=== PATIENT | female | born 1985 | race Asian ===

== ENCOUNTER 2020-10-11 11:20 | Outpatient (REF) | payer OTHER, SELFPAY ==
[2020-10-11 12:57] LABS: Alanine Aminotransferase 17 U/L (0-31); Albumin Level 4.3 g/dL (3.5-5.0); Alkaline Phosphatase 59 U/L (39-117); Anion Gap 10 (12-20); Aspartate Amino Transferase 26 U/L (5-31); Bilirubin Total 0.7 mg/dL (0.0-1.0); Blood Urea Nitrogen 8 mg/dL (9-16); Calcium 9.6 mg/dL (8.4-10.2); Carbon Dioxide 29 mmol/L (22-29); Chloride 103 mmol/L (96-108); Cholesterol 147 mg/dL; Estimated Glomerular Filt Rate > 60; Glucose Random 96 mg/dL (60-115); HDL Cholesterol 37 mg/dL; LDL Cholesterol Calculated 88 mg/dl; Potassium 4.4 mmol/L (3.3-5.1); Sodium 138 mmol/L (135-145); Total Protein 7.3 g/dL (6.5-8.0); Triglycerides 114 mg/dL
[2020-10-11 13:17] LABS: ~HepC Num1 0.15 S/CO (0.00-0.79); ~Hepatitis C Antibody Nonreactive (Nonreactive)
== END 2020-10-11 11:21 | disposition home or self-care (01) ==
LOC: HO.LAB 11:20
PROVIDERS: PCP Family Medicine; Visit Provider Family Medicine
DX: Z00.00 Encounter for general adult medical examination without abnormal findings (principal); Z11.59 Encounter for screening for other viral diseases
CPT/HCPCS: 36415; 80053; 80061; 86803

== ENCOUNTER 2021-05-02 12:07 | Outpatient (REF) | payer OTHER, SELFPAY ==
--- NOTE | ~2021-05-02 | US_ITS ---
EXAMINATION: US RETROPERITONEAL LIMITED (RENAL ONLY) CLINICAL INFORMATION: Malignant neoplasm of left kidney. COMPARISON: Renal ultrasound 12/16/2018. TECHNIQUE: Real-time imaging of the kidneys. FINDINGS: RIGHT KIDNEY: 11.1 x 4.8 x 6.6 cm (SAG x AP x TRV). The kidney is normal in size, contour, and echogenicity. Renal cortical thickness is normal. No calculi or focal parenchymal lesions. No hydronephrosis. There is an extrarenal pelvis. LEFT KIDNEY: Surgically absent. US/US renal RT IMPRESSION: Extrarenal pelvis of the right kidney, otherwise unremarkable.
--- NOTE | ~2021-05-02 | XR_ITS ---
EXAMINATION: XR CHEST CLINICAL INFORMATION: Renal malignancy COMPARISON: Ultrasound of May 02, 2021 and December 16, 2018 TECHNIQUE: 2 views of the chest were obtained. FINDINGS: No significant abnormality is noted involving the heart, lungs, mediastinum, bony thorax or soft tissues. XR/XR chest 2V IMPRESSION: No acute disease.
== END 2021-05-02 12:08 | disposition home or self-care (01) ==
LOC: HO.US 12:07
PROVIDERS: PCP Family Medicine; Visit Provider Urology
DX: C64.2 Malignant neoplasm of left kidney, except renal pelvis (principal)
CPT/HCPCS: 71046; 76775

== ENCOUNTER 2021-06-06 11:46 | Outpatient (REF) | payer OTHER, SELFPAY ==
[2021-06-06 12:57] LABS: Blood Urea Nitrogen 8 mg/dL (9-16); Estimated Glomerular Filt Rate > 60
== END 2021-06-06 11:47 | disposition home or self-care (01) ==
LOC: HO.LAB 11:46
PROVIDERS: Visit Provider Urology
DX: C64.2 Malignant neoplasm of left kidney, except renal pelvis (principal)
CPT/HCPCS: 36415; 82565; 84520

== ENCOUNTER 2022-07-10 11:37 | Outpatient (REF) | payer OTHER, SELFPAY ==
--- NOTE | ~2022-07-10 | XR_ITS ---
EXAMINATION: XR CHEST CLINICAL INFORMATION: Malignant neoplasm of left kidney. COMPARISON: 05/02/2021 chest radiographs. TECHNIQUE: 2 views of the chest were obtained. FINDINGS: The lungs are clear. There are no pleural effusions. The heart and mediastinal structures are unremarkable. Mild thoracolumbar dextro scoliosis is noted without suspicious abnormality. XR/XR chest 2V IMPRESSION: Stable chest. No acute cardiopulmonary process.
--- NOTE | ~2022-07-10 | US_ITS ---
EXAMINATION: US RETROPERITONEAL LIMITED (RENAL ONLY) CLINICAL INFORMATION: Malignant neoplasm of left kidney. COMPARISON: Renal ultrasound 05/02/2021 and 12/16/2018. TECHNIQUE: Real-time imaging of the kidneys. FINDINGS: RIGHT KIDNEY: 12.1 x 5.3 x 5.4 cm (SAG x AP x TRV). The kidney is normal in size, contour, and echogenicity. Renal cortical thickness is normal. No renal calculi or focal parenchymal lesions. New trace right hydronephrosis. LEFT KIDNEY: Surgically absent. US/US renal RT IMPRESSION: 1. New trace right hydronephrosis. 2. Status post left nephrectomy.
[2022-07-10 12:53] LABS: Basophils Percent Auto 0.8 % (0-2); Eosinophils Absolute Auto 0.3 X10*3/uL (0.0-0.4); Hematocrit 25.1 % (37.0-47.0); Imm Gran Abs Auto 0.02 X10*3/uL (0.00-0.03); Imm Gran Pct Auto 0.4 % (0.0-0.4); Lymphocytes Absolute Auto 1.3 X10*3/uL (1.2-4.9); Lymphocytes Percent Auto 26.6 % (20-40); MANUAL DIFF FLAG SCAN; Mean Corpuscular HGB Conc 26.3 g/dl (31.0-35.0); Monocytes Absolute Auto 0.3 X10*3/uL (0.1-1.2); Neutrophils Percent Auto 60.2 % (45-73); PLT CLUMP 1; Red Blood Count 4.41 X10*6/uL (4.20-5.50); Red Cell Distribution Width 22.1 % (11.0-16.0); SCAN SMEAR FLAG 1
[2022-07-10 13:02] LABS: Anion Gap 13 (12-20); Blood Urea Nitrogen 7 mg/dL (9-16); Calcium 9.8 mg/dL (8.4-10.2); Carbon Dioxide 26 mmol/L (22-29); Chloride 105 mmol/L (96-108); Estimated Glomerular Filt Rate > 60; Glucose Random 93 mg/dL (60-115); Potassium 4.6 mmol/L (3.3-5.1); Sodium 139 mmol/L (135-145)
[2022-07-10 13:10] LABS: Mean Corpuscular Volume 56.9 fL (80.0-98.0)
[2022-07-10 13:11] LABS: Platelet Count 160 X10*3/uL (160-400)
[2022-07-10 13:24] LABS: Hemoglobin 6.6 g/dl (12.0-16.0)
[2022-07-10 13:25] LABS: SLIDE REVIEW VERIFIED
== END 2022-07-10 11:38 | disposition home or self-care (01) ==
LOC: HO.US 11:37
PROVIDERS: Absent Provider Urology; PCP Family Medicine; Visit Provider Nurse Practitioner Family
DX: C64.2 Malignant neoplasm of left kidney, except renal pelvis (principal)
CPT/HCPCS: 36415; 71046; 76775; 80048; 85025

== ENCOUNTER 2022-07-11 13:37 | Observation (INO) | payer OTHER, SELFPAY ==
[2022-07-11] VITALS (7 sets, daily range): BP systolic 108–129; BP diastolic 72–83; PULSE 75–102; RESP 16–20; TEMP 36.5–36.9; O2SAT 100; BMI 22.5
--- NOTE | ~2022-07-11 | US_ITS ---
EXAMINATION: US PELVIS CLINICAL INFORMATION: Menorrhagia. COMPARISON: Pelvic ultrasound dated 11/20/2016. TECHNIQUE: Ultrasound of the pelvis is performed using both transabdominal and transvaginal transducers along with Doppler. Transvaginal imaging is performed due to inadequate visualization transabdominally. FINDINGS: Uterus: Anteverted/anteflexed measuring 7.8 x 5.1 x 7.3 cm. Subserosal fibroid in the right fundus measuring approximately 3.1 x 2.6 x 2.4 cm. A smaller intramural fibroid in the body in the left measures 1.3 x 1.0 x 1.1 cm. The endometrial stripe measures up to 1.3 cm with mild heterogeneity. A submucosal echogenic focus posteriorly at the level the fundus measures 0.3 x 0.2 cm. The cervix is closed measuring approximately 3 cm. Right ovary: 8.0 x 7.7 x 7.0 cm. Homogeneous hypoechoic cyst measuring approximately 7.0 x 6.9 x 6.1 cm. Color Doppler showed no associated vascular flow. Left ovary: 5.6 x 3.1 x 5.3 cm. Hypoechoic cysts measuring 4.0 x 3.0 x 2.9 cm. Anechoic cyst measures 2.3 x 1.8 x 1.6 cm. Mild adjacent anechoic fluid. Color Doppler showed no abnormal vascular flow. US/US pelvic and transvaginal IMPRESSION: 1. Fibroid uterus. 2. Mildly heterogeneous endometrium with tiny submucosal calcification. The previously seen polyp was not visualized. 3. Hypoechoic and anechoic ovarian cysts, right greater left. These likely represent hemorrhagic cyst however endometriomas cannot be excluded. If menorrhagia persists or worsens, nonemergent contrast-enhanced pelvic MRI should be considered to better characterize these multiple findings.
[2022-07-11 13:51] LABS: Basophils Percent Auto 0.3 % (0-2); Eosinophils Absolute Auto 0.2 X10*3/uL (0.0-0.4); Eosinophils Percent Auto 2.5 % (0-4); Imm Gran Abs Auto 0.02 X10*3/uL (0.00-0.03); Imm Gran Pct Auto 0.3 % (0.0-0.4); Lymphocytes Absolute Auto 0.9 X10*3/uL (1.2-4.9); Lymphocytes Percent Auto 14.6 % (20-40); MANUAL DIFF FLAG SCAN; Mean Corpuscular HGB Conc 26.2 g/dl (31.0-35.0); Mean Corpuscular Hemoglobin 15.1 pg (27.0-33.0); Monocytes Absolute Auto 0.4 X10*3/uL (0.1-1.2); Neutrophils Absolute Auto 4.6 x10*3/uL (2.0-8.3); Neutrophils Percent Auto 76.3 % (45-73); PLT CLUMP 1; Red Blood Count 4.49 X10*6/uL (4.20-5.50); Red Cell Distribution Width 22.1 % (11.0-16.0); SCAN SMEAR FLAG 1
[2022-07-11 13:59] LABS: Hemoglobin 6.8 g/dl (12.0-16.0); Mean Corpuscular Volume 57.9 fL (80.0-98.0)
[2022-07-11 14:10] LABS: Platelet Count 163 X10*3/uL (160-400); SLIDE REVIEW VERIFIED
[2022-07-11 14:12] LABS: Alanine Aminotransferase 12 U/L (0-31); Albumin Level 4.3 g/dL (3.5-5.0); Alkaline Phosphatase 56 U/L (39-117); Anion Gap 15 (12-20); Aspartate Amino Transferase 25 U/L (5-31); Bilirubin Total 0.4 mg/dL (0.0-1.0); Blood Urea Nitrogen 10 mg/dL (9-16); Calcium 9.4 mg/dL (8.4-10.2); Carbon Dioxide 24 mmol/L (22-29); Chloride 105 mmol/L (96-108); Creatinine Clr Calc Pharmacy 97.7; Estimated Glomerular Filt Rate > 60; Glucose Random 99 mg/dL (60-115); Potassium 4.6 mmol/L (3.3-5.1); Sodium 139 mmol/L (135-145); Total Protein 7.2 g/dL (6.5-8.0)
--- NOTE | 2022-07-11 16:33 | ED.GENADULT ---
HPI - General Adult General Chief complaint: General Medical <MARIANELA Mcgrath - Last Filed: 07/11/22 22:05> Stated complaint: Sent by PCP, ? abnormal labs <MARIANELA Mcgrath - Last Filed: 07/11/22 22:05> Time Seen by Provider: 07/11/22 19:34 <MARIANELA Mcgrath - Last Filed: 07/11/22 22:05> Source: patient <MARIANELA Mcgrath - Last Filed: 07/11/22 22:05> Mode of arrival: ambulatory <MARIANELA Mcgrath - Last Filed: 07/11/22 22:05> Limitations: no limitations <MARIANELA Mcgrath - Last Filed: 07/11/22 22:05> History of Present Illness HPI narrative: Patient is a 37 year old assigned female at with history of renal cell carcinoma s/p left kidney removal presenting to the emergency department today after being told she had abnormal labs at her PCP. Patient states that yesterday, she had a an appointment with her PCP for the first time in a long time for a check up and today she was told that her hgb is low. Patient states that she only gets dizzy when she stands up too quick but otherwise feels fine. Patient states that her last menstrual cycle was last week. Patient denies any current lightheadedness, abdominal pain, nausea, vomiting, fever, chills, blurry vision, double vision, loss of vision, chest pain, difficulty breathing, shortness of breath, back pain, night sweats, pain with urination, increased urinary frequency, increased urinary urgency, blood in her stool, syncope or a near syncopal episode, recent trauma or falls, bowel incontinence, bladder incontinence, bowel retention, bladder retention, or any other complaints at this time. Dr Gomez's Note: 37-year-old female with significant past medical history of renal cell carcinoma for which she has had her left kidney removed and is currently followed annually by Dr. Paige. Patient states that she has been having dizziness, dyspnea on exertion as well as racing heart for the past 6 months and has been attempting to follow-up with primary care provider without success. Patient has known menorrhagia for which she has never had an ultrasound or further evaluation by Gynecology for. she otherwise denies any hematemesis , melena, hematochez. Her last menstrual period was last week. <MARIANELA Mcgrath - Last Filed: 07/11/22 22:05> Patient is a 37 year old assigned female at with no reported medical history presenting to the emergency department today after being told she had abnormal labs at her PCP. Patient states that yesterday, she had a an appointment with her PCP for the first time in a long time for a check up and today she was told that her hgb is low. Patient states that she only gets dizzy when she stands up too quick but otherwise feels fine. Patient states that she is currently on her period and her periods are usually as heavy as this one is presently. Patient denies any lightheadedness, abdominal pain, nausea, vomiting, fever, chills, blurry vision, double vision, loss of vision, chest pain, difficulty breathing, shortness of breath, back pain, night sweats, pain with urination, increased urinary frequency, increased urinary urgency, blood in her stool, syncope or a near syncopal episode, recent trauma or falls, bowel incontinence, bladder incontinence, bowel retention, bladder retention, or any other complaints at this time. Dr Gomez's Note: 37-year-old female with significant past medical history of renal cell carcinoma for which she has had her left kidney removed and is currently followed annually by Dr. Paige. Patient states that she has been having dizziness, dyspnea on exertion as well as racing heart for the past 6 months and has been attempting to follow-up with primary care provider without success. Patient has known menorrhagia for which she has never had an ultrasound or further evaluation by Gynecology for. she otherwise denies any hematemesis , melena, hematochez. Her last menstrual period was last week. <Chelsey Gomez MD - Last Filed: 07/11/22 21:23> Onset (ago): day(s) <MARIANELA Mcgrath - Last Filed: 07/11/22 22:05> Severity: mild <MARIANELA Mcgrath - Last Filed: 07/11/22 22:05> Severity scale (1-10): 5 <MARIANELA Mcgrath - Last Filed: 07/11/22 22:05> Relieving factors: none <MARIANELA Mcgrath - Last Filed: 07/11/22 22:05> Exacerbating factors: none <MARIANELA Mcgrath - Last Filed: 07/11/22 22:05> Associated symptoms: denies other symptoms <MARIANELA Mcgrath - Last Filed: 07/11/22 22:05> Treatments prior to arrival: none <MARIANELA Mcgrath - Last Filed: 07/11/22 22:05> Related Data Home medications: Home Medications Medication Instructions Recorded Confirmed acetaminophen 325 mg tablet 650 mg PO Q6H PRN Pain 07/11/22 07/11/22 omeprazole 20 mg capsule,delayed 20 mg PO DAILY PRN Heartburn 07/11/22 07/11/22 release <MARIANELA Mcgrath - Last Filed: 07/11/22 22:05> Allergies/adverse reactions: Allergies Allergy/AdvReac Type Severity Reaction Status Date / Time No Known Allergies Allergy Unverified 05/17/20 18:33 [No Known Allergies*] <MARIANELA Mcgrath - Last Filed: 07/11/22 22:05> Review of Systems Review of Systems: Pertinent positives and negatives as stated in HPI 10 point review of systems is otherwise negative. <Chelsey Gomez MD - Last Filed: 07/11/22 21:23> Constitutional: Constitutional: Reports no additional constitutional complaints, Denies chills, Denies fever(s) and Denies night sweats <MARIANELA Mcgrath - Last Filed: 07/11/22 22:05> Eyes: Eyes: Reports no additional eye complaints, Denies blurry vision, Denies change in vision, Denies diplopia, Denies eye discharge, Denies loss of vision and Denies eye pain <MARIANELA Mcgrath - Last Filed: 07/11/22 22:05> ENT: Reports dizziness (with rapid standing) <MARIANELA Mcgrath - Last Filed: 07/11/22 22:05> Cardiovascular: Cardiovascular: Reports no additional cardiovascular complaints, Denies chest pain, Denies lightheadedness, Denies Loss of Consciousness and Denies dyspnea <MARIANELA Mcgrath - Last Filed: 07/11/22 22:05> Respiratory: Respiratory: Reports no additional respiratory complaints and Denies dyspnea <MARIANELA Mcgrath - Last Filed: 07/11/22 22:05> Gastrointestinal: Gastrointestinal: Reports no additional gastrointestinal complaints, Denies abdominal pain, Denies melena, Denies hematochezia, Denies change in bowel habits and Denies change in stool character <MARIANELA Mcgrath - Last Filed: 07/11/22 22:05> Genitourinary: Genitourinary: Denies hematuria, Denies urinary frequency, Denies dysuria, Denies urinary incontinence, Denies urinary hesitancy and Denies urinary urgency <MARIANELA Mcgrath - Last Filed: 07/11/22 22:05> Musculoskeletal: Musculoskeletal: Reports no additional musculoskeletal complaints, Denies numbness and Denies tingling <MARIANELA Mcgrath - Last Filed: 07/11/22 22:05> Neurologic: Reports dizziness (with rapid standing), Denies loss of vision, Denies numbness and Denies tingling <MARIANELA Mcgrath - Last Filed: 07/11/22 22:05> Psychiatric: Psychiatric: Reports no additional psychiatric complaints <MARIANELA Mcgrath - Last Filed: 07/11/22 22:05> Endocrine: Endocrine: Reports no additional endocrine complaints <MARIANELA Mcgrath - Last Filed: 07/11/22 22:05> Hematologic/Lymphatic: Hematologic/Lymphatic: Reports no additional hematologic/lymphatic complaints <MARIANELA Mcgrath - Last Filed: 07/11/22 22:05> Allergic/Immunologic: Allergic/Immunologic: Reports no additional allergic/immunologic complaints <MARIANELA Mcgrath - Last Filed: 07/11/22 22:05> PMFSH Past Medical History Attestation statement: The following information was validated with the patient. <MARIANELA Mcgrath - Last Filed: 07/11/22 22:05> Source: old records reviewed <MARIANELA Mcgrath - Last Filed: 07/11/22 22:05> nursing notes reviewed <Chelsey Gomez MD - Last Filed: 07/11/22 21:23> Medical History: Medical History Menorrhagia <MARIANELA Mcgrath - Last Filed: 07/11/22 22:05> Social History Social History: Social History Advance Directives: No Advance Directives Information Provided: No <MARIANELA Mcgrath - Last Filed: 07/11/22 22:05> Physical Exam ED Vital Signs: Vital Signs - 24 hr 07/11/22 13:38 07/11/22 20:39 07/11/22 21:39 Temperature 97.8 F 97.7 F Pulse Rate 96 82 85 Respiratory Rate 18 16 17 Blood Pressure 117/73 126/81 115/74 Pulse Oximetry 100 100 100 Oxygen Delivery Method Room Air Room Air Room Air 07/11/22 21:58 Temperature 97.7 F Pulse Rate 98 Respiratory Rate 20 Blood Pressure 129/83 Pulse Oximetry Oxygen Delivery Method BMI result Body Mass Index 22.5 <MARIANELA Mcgrath - Last Filed: 07/11/22 22:05> Vital Signs - 24 hr 07/11/22 13:38 07/11/22 20:39 07/11/22 21:39 Temperature 97.8 F 97.7 F Pulse Rate 96 82 85 Respiratory Rate 18 16 17 Blood Pressure 117/73 126/81 115/74 Pulse Oximetry 100 100 100 Oxygen Delivery Method Room Air Room Air Room Air 07/11/22 21:58 Temperature 97.7 F Pulse Rate 98 Respiratory Rate 20 Blood Pressure 129/83 Pulse Oximetry Oxygen Delivery Method BMI result Body Mass Index 22.5 VITAL SIGNS: Reviewed. GENERAL: Well developed, well nourished, in no acute distress. HEAD: Normocephalic/atraumatic EYES: PERRLA, EOMI EARS: Ext canals without abnormality OROPHARYNX: no oral lesions noted, posterior pharynx clear LUNGS: Normal breath sounds. No adventitious sounds or accessory muscle use. SpO2<100> CARDIOVASCULAR: Regular rate and rhythm without noted murmurs ABDOMEN: Soft, non-tender, non-distended with bowel sounds. MUSCULOSKELETAL: No tenderness, deformities, or effusions noted on gross inspection. EXTREMITIES: No cyanosis, clubbing or edema. SKIN: Inspection of the skin reveals no rashes, dry, poor turgor NEUROLOGIC: Alert and oriented x 4. Strength and sensation to light touch were grossly intact x 4. <Chelsey Gomez MD - Last Filed: 07/11/22 21:23> Const General: cooperative, no acute distress, alert and awake <MARIANELA Mcgrath - Last Filed: 07/11/22 22:05> Nutritional Appearance: well nourished <MARIANELA Mcgrath - Last Filed: 07/11/22 22:05> Orientation/consciousness: patient oriented x3 <MARIANELA Mcgrath - Last Filed: 07/11/22 22:05> Limitations: no limitations <MARIANELA Mcgrath - Last Filed: 07/11/22 22:05> HENMT Head: Yes normal to inspection and Yes atraumatic <Melissa Prieto RI - Last Filed: 07/11/22 22:05> Ears: hearing grossly normal bilaterally and external ears normal <MARIANELA Mcgrath - Last Filed: 07/11/22 22:05> General nose exam: Normal external nose present, no nasal discharge noted and no epistaxis <MARIANELA Mcgrath - Last Filed: 07/11/22 22:05> Face and sinus: Yes normal facial exam, No abrasion and No laceration <Melissa Prieto RI - Last Filed: 07/11/22 22:05> Mouth: Normal oral and palatal mucosa present, no drooling and no muffled voice <Melissa Prieto RI - Last Filed: 07/11/22 22:05> Eyes General: appearance normal, both eyes and all related structures <MARIANELA Mcgrath - Last Filed: 07/11/22 22:05> Periorbital: periorbital findings normal <MARIANELA Mcgrath - Last Filed: 07/11/22 22:05> Eyelids: Yes eyelids normal <MARIANELA Mcgrath - Last Filed: 07/11/22 22:05> Conjunctivae: conjunctivae normal <MAIRANELA Mcgrath - Last Filed: 07/11/22 22:05> Pupils: Equal, round and reactive pupils present <MARIANELA Mcgrath - Last Filed: 07/11/22 22:05> EOM: EOMs intact bilaterally <MARIANELA Mcgrath - Last Filed: 07/11/22 22:05> Neck Neck: Yes normal visual inspection, Yes full ROM and Yes no lymphadenopathy <MARIANELA Mcgrath - Last Filed: 07/11/22 22:05> Chest Chest palpation & inspection: normal inspection of the chest <Melissa PrietoMARIANELA - Last Filed: 07/11/22 22:05> Resp Effort & Inspection: normal respiratory effort and able to speak in complete sentences <Mleissa PrietoMARIANELA - Last Filed: 07/11/22 22:05> Auscultation: clear to auscultation bilaterally <Melissa PrietoMARIANELA - Last Filed: 07/11/22 22:05> Cardio Rate: regular rate <Melissa PrietoMARIANELA - Last Filed: 07/11/22 22:05> Rhythm: regular rhythm <Melissa rPietoMARIANELA - Last Filed: 07/11/22 22:05> GI Inspection: Yes normal to inspection <Melissa PrietoMARIANELA - Last Filed: 07/11/22 22:05> Neuro General: patient oriented x3 and moves all extremities <Melissa PrietoMARIANELA - Last Filed: 07/11/22 22:05> Cranial nerves: Yes Equal, round and reactive pupils present <Melissa PrietoMARIANELA - Last Filed: 07/11/22 22:05> Cognition (Neuro): normal cognition <Melissa PrietoMARIANELA - Last Filed: 07/11/22 22:05> Motor exam (neuro): 5/5 motor strength present throughout <Melissa PrietoMARIANELA - Last Filed: 07/11/22 22:05> Sensory Exam: Normal double simultaneous stimulation for sensation <Melissa PrietoMARIANELA - Last Filed: 07/11/22 22:05> Coordination: [id number] test normal <Melissa MoraMARIANELA michael - Last Filed: 07/11/22 22:05> Extrem General: Yes normal to inspection, Yes full ROM and Yes capillary refill normal <Melissa MoraMARIANELA michael - Last Filed: 07/11/22 22:05> Psych Appearance: grossly normal <Melissaleslye MoraMARIANELA michael - Last Filed: 07/11/22 22:05> Mental Status: mental status grossly normal <Melissa MoraMARIANELA michael - Last Filed: 07/11/22 22:05> Affect: normal affect <Melissa MoraMARIANELA michael - Last Filed: 07/11/22 22:05> Attitude: cooperative <Melissaleslye MoraMARIANELA michael - Last Filed: 07/11/22 22:05> Thought process: Normal thought process present <MARIANELA Mcgrath - Last Filed: 07/11/22 22:05> Thought content: Normal thought content present <MARIANELA Mcgrath - Last Filed: 07/11/22 22:05> Insight: Good insight present (Psych) <MARIANELA Mcgrath - Last Filed: 07/11/22 22:05> Course Course Course Narrative: RME completed at 1615 by Melissa Prieto PA-C. Patient's hgb is 6.8 - I have alerted the charge nurse that the patient needs a room for blood transfusion. Type and screen ordered, beta hcg added on. Patient sent back to the waiting room pending room availability for blood transfusion and additional evaluation. <MARIANELA Mcgrath - Last Filed: 07/11/22 22:05> RME completed at 1615 by Melissa Prieto PA-C. Patient's hgb is 6.8 - I have alerted the charge nurse that the patient needs a room for blood transfusion. Type and screen ordered, beta hcg added on. Patient sent back to the waiting room pending room availability for blood transfusion and additional evaluation. 37-year-old female with history and clinical presentation consistent with chronic and progressive menorrhagia contributing to patient's noted acute blood loss anemia without other evidence blood loss. Patient is noted to be symptomatic as well as significantly anemic and given her underlying medical history will be admitted for further follow-up. I discussed the case with inpatient hospitalist who has accepted admission. <Chelsey Gomez MD - Last Filed: 07/11/22 21:23> Medical Decision Making Medical Records Medical records reviewed: Yes I reviewed the patient's medical records. <MARIANELA Mcgrath - Last Filed: 07/11/22 22:05> Lab Data Lab results reviewed: Yes I reviewed the patient's lab results. <MARIANELA Mcgrath - Last Filed: 07/11/22 22:05> Result diagrams: : 07/11/22 13:45 07/11/22 13:45 <MARIANELA Mcgrath - Last Filed: 07/11/22 22:05> Labs: Lab Results 07/11/22 07/11/22 07/11/22 Range/Units 13:45 13:45 17:22 WBC 6.0 (4.8-10.8) X10*3/uL RBC 4.49 (4.20-5.50) X10*6/uL Hgb 6.8 L* (12.0-16.0) g/dl Hct 26.0 L (37.0-47.0) % MCV 57.9 L (80.0-98.0) fL MCH 15.1 L (27.0-33.0) pg MCHC 26.2 L (31.0-35.0) g/dl RDW 22.1 H (11.0-16.0) % Plt Count 163 (160-400) X10*3/uL MPV Not Reportable Immature Gran % (Auto) 0.3 (0.0-0.4) % Neut % (Auto) 76.3 H (45-73) % Lymph % (Auto) 14.6 L (20-40) % Dane % (Auto) 6.0 (2-11) % Eos % (Auto) 2.5 (0-4) % Baso % (Auto) 0.3 (0-2) % Lymph # (Auto) 0.9 L (1.2-4.9) X10*3/uL Dane # (Auto) 0.4 (0.1-1.2) X10*3/uL Eos # (Auto) 0.2 (0.0-0.4) X10*3/uL Baso # (Auto) 0.0 (0.0-0.2) X10*3/uL Abs Immat Gran (auto) 0.02 (0.00-0.03) X10*3/uL Absolute Neuts (auto) 4.6 (2.0-8.3) x10*3/uL Absolute Nucleated RBC 0.000 (0.0-0.012) X10*3/uL Nucleated RBC % (auto) 0.0 (0.0-0.2) /100WBC Smear Tech's Comments VERIFIED Sodium 139 (135-145) mmol/L Potassium 4.6 (3.3-5.1) mmol/L Chloride 105 (96-108) mmol/L Carbon Dioxide 24 (22-29) mmol/L Anion Gap 15 (12-20) BUN 10 (9-16) mg/dL Creatinine 0.78 (0.5-1.4) mg/dL Estim Creat Clear Calc 97.7 Estimated GFR > 60 Random Glucose 99 (60-115) mg/dL Calcium 9.4 (8.4-10.2) mg/dL Total Bilirubin 0.4 (0.0-1.0) mg/dL AST 25 (5-31) U/L ALT 12 (0-31) U/L Alkaline Phosphatase 56 (39-117) U/L Total Protein 7.2 (6.5-8.0) g/dL Albumin 4.3 (3.5-5.0) g/dL Beta HCG, Quant < 2 mIU/mL Blood Type B Positive Antibody Screen NEGATIVE Crossmatch See Detail <MARIANELA Mcgrath - Last Filed: 07/11/22 22:05> Lab Results 07/11/22 07/11/22 07/11/22 Range/Units 13:45 13:45 17:22 WBC 6.0 (4.8-10.8) X10*3/uL RBC 4.49 (4.20-5.50) X10*6/uL Hgb 6.8 L* (12.0-16.0) g/dl Hct 26.0 L (37.0-47.0) % MCV 57.9 L (80.0-98.0) fL MCH 15.1 L (27.0-33.0) pg MCHC 26.2 L (31.0-35.0) g/dl RDW 22.1 H (11.0-16.0) % Plt Count 163 (160-400) X10*3/uL MPV Not Reportable Immature Gran % (Auto) 0.3 (0.0-0.4) % Neut % (Auto) 76.3 H (45-73) % Lymph % (Auto) 14.6 L (20-40) % Dane % (Auto) 6.0 (2-11) % Eos % (Auto) 2.5 (0-4) % Baso % (Auto) 0.3 (0-2) % Lymph # (Auto) 0.9 L (1.2-4.9) X10*3/uL Dane # (Auto) 0.4 (0.1-1.2) X10*3/uL Eos # (Auto) 0.2 (0.0-0.4) X10*3/uL Baso # (Auto) 0.0 (0.0-0.2) X10*3/uL Abs Immat Gran (auto) 0.02 (0.00-0.03) X10*3/uL Absolute Neuts (auto) 4.6 (2.0-8.3) x10*3/uL Absolute Nucleated RBC 0.000 (0.0-0.012) X10*3/uL Nucleated RBC % (auto) 0.0 (0.0-0.2) /100WBC Smear Tech's Comments VERIFIED Sodium 139 (135-145) mmol/L Potassium 4.6 (3.3-5.1) mmol/L Chloride 105 (96-108) mmol/L Carbon Dioxide 24 (22-29) mmol/L Anion Gap 15 (12-20) BUN 10 (9-16) mg/dL Creatinine 0.78 (0.5-1.4) mg/dL Estim Creat Clear Calc 97.7 Estimated GFR > 60 Random Glucose 99 (60-115) mg/dL Calcium 9.4 (8.4-10.2) mg/dL Total Bilirubin 0.4 (0.0-1.0) mg/dL AST 25 (5-31) U/L ALT 12 (0-31) U/L Alkaline Phosphatase 56 (39-117) U/L Total Protein 7.2 (6.5-8.0) g/dL Albumin 4.3 (3.5-5.0) g/dL Beta HCG, Quant < 2 mIU/mL Blood Type B Positive Antibody Screen NEGATIVE Crossmatch See Detail <Chelsey Gomez MD - Last Filed: 07/11/22 21:23> Critical Care Time Critical Care Time Critical Care Time: Yes <Chelsey Gomez MD - Last Filed: 07/11/22 21:23> Total Critical Care Time: 30 <Chelsey Gomez MD - Last Filed: 07/11/22 21:23> Attestation: I personally attest to this time spent taking care of the patient. <Chelsey Gomez MD - Last Filed: 07/11/22 21:23> Discharge Plan Discharge Clinical Impression: ABLA (acute blood loss anemia), Menorrhagia, Hx of renal cell carcinoma, Palpitations, VILCHIS (dyspnea on exertion) <MARIANELA Mcgrath - Last Filed: 07/11/22 22:05> Patient Disposition: Admitted As Inpatient <MARIANELA Mcgrath - Last Filed: 07/11/22 22:05>
[2022-07-11 16:36] LABS: HCG Quantitative < 2 mIU/mL
--- NOTE | 2022-07-11 21:48 | PHA.MEDREC ---
Pharmacy Consult ? Medication Reconciliation Pharmacy has completed the medication reconciliation. Per conversation with patient she only has 2 medications she takes on as needed basis. No daily medications.
--- NOTE | 2022-07-11 22:02 | PM.IMHP ---
History of Present Illness Date of Service: 07/11/22 Chief Complaint: Dizziness This is a 37-year-old female with history of renal cell carcinoma status post left kidney removal, currently not on any prescription medications who was sent to the emergency department for evaluation of abnormal labs at her PCPs office. Patient states she has been having dizziness, lightheadedness for a while now. She had an appointment with her PCP after a long time yesterday when blood work was done. She was called to inform that her hemoglobin was low and that she should present to the ER. Patient states for the last 5-6 months she has been having heavy menstrual cycle lasting about 7 days. Her dizziness is worse when she tries to stand but resolves after. Also has associated fatigue. Patient has not seen financial services associate for her menorrhagia. Patient denies fever, chills, chest discomfort, palpitations, shortness of breath, abdominal discomfort, changes in urinary or bowel habits. No hematemesis, hematuria, melena or hematochezia. In the emergency department, hemoglobin was found to be low at 6.8 Review of Systems Constitutional: Constitutional: Reports fatigue and Reports lethargy Cardiovascular: Cardiovascular: Reports lightheadedness Respiratory: Respiratory: Reports no additional respiratory complaints Gastrointestinal: Gastrointestinal: Reports no additional gastrointestinal complaints Genitourinary: Genitourinary: Reports no additional female genitourinary complaints Endocrine: Endocrine: Reports fatigue [facility] Medical History Menorrhagia Functional capacity: independent ambulation Social History Advance Directives: No Advance Directives Information Provided: No Meds Allergies Allergy/AdvReac Type Severity Reaction Status Date / Time No Known Allergies Allergy Unverified 05/17/20 18:33 [No Known Allergies*] Home Medications Medication Instructions Recorded Confirmed Last Taken Type acetaminophen 325 mg tablet 650 mg PO Q6H PRN Pain 07/11/22 07/11/22 Unknown History omeprazole 20 mg capsule,delayed 20 mg PO DAILY PRN Heartburn 07/11/22 07/11/22 Unknown History release Physical Exam Vital Signs and Narrative: Vital Signs: Last Vital Signs Temp 97.7 F 07/11/22 21:58 Pulse 98 07/11/22 21:58 Resp 20 07/11/22 21:58 BP 129/83 07/11/22 21:58 Pulse Ox 100 07/11/22 21:39 O2 Del Method 07/11/22 21:39 BMI result Body Mass Index 22.5 Middle-aged male lying in bed in no distress Neck supple, no JVD Tachycardic with regular rhythm, S1-S2 heard Regular breath sounds bilaterally, no wheezing or crackles appreciated Abdomen soft nontender, no guarding, no rigidity Patient is awake, alert and oriented to self, place, time and person ; no focal motor deficit Psych: Normal mood No pedal edema Results Labs CBC and Chem 7: 07/11/22 13:45 07/11/22 13:45 Labs: Laboratory Results - last 24 hr 07/11/22 07/11/22 07/11/22 13:45 13:45 17:22 MCV 57.9 L MCH 15.1 L MCHC 26.2 L RDW 22.1 H Plt Count 163 MPV Not Reportable Immature Gran % (Auto) 0.3 Neut % (Auto) 76.3 H Lymph % (Auto) 14.6 L [place] % (Auto) 6.0 Eos % (Auto) 2.5 Baso % (Auto) 0.3 Lymph # (Auto) 0.9 L [place] # (Auto) 0.4 Eos # (Auto) 0.2 Baso # (Auto) 0.0 Abs Immat Gran (auto) 0.02 Absolute Neuts (auto) 4.6 Absolute Nucleated RBC 0.000 Nucleated RBC % (auto) 0.0 Smear Tech's Comments VERIFIED Anion Gap 15 Estim Creat Clear Calc 97.7 Estimated GFR > 60 Random Glucose 99 Calcium 9.4 Total Bilirubin 0.4 AST 25 ALT 12 Alkaline Phosphatase 56 Total Protein 7.2 Albumin 4.3 Beta HCG, Quant < 2 Blood Type B Positive Antibody Screen NEGATIVE Crossmatch See Detail Assessment and Plan (1) ABLA (acute blood loss anemia): Status: Acute (2) Menorrhagia: Status: Acute Plan This is a 37-year-old female with history of renal cell carcinoma status post left kidney removal, currently not on any prescription medications who was sent to the emergency department for evaluation of abnormal labs at her PCPs office. #. Symptomatic blood loss anemia due to: #. Menorrhagia - PRBC transfusion ordered in the ER. Monitor symptoms with PRBC transfusion. Will need iron supplementation at discharge and OBGYN consult. Ultrasound ordered from the ER, pending. #. Orthostasis due to above - Evaluate for symptoms after PRBC transfusion. Repeat orthostatic vital signs in a.m.. DVT prophylaxis: None. Patient is ambulatory Full code Regular diet Quality Stroke Does the patient have a stroke diagnosis?: No VTE Prior VTE?: No VTE Risk Level:: Medical - low VTE Device Contraindication: Treatment Not Indicated VTE Drug Contraindication: Treatment Not Indicated
[2022-07-11 22:16] LABS: COVID-19 Test Negative (Negative)
[2022-07-11 23:21] LABS: Iron 13 mcg/dL (30-160); Percent Iron Saturation 3 % (15-50); Total Iron Binding Capacity 411 mcg/dL (228-428); Unsaturated Iron Binding 398 ug/dL
--- NOTE | 2022-07-11 23:42 | PC.NURSE ---
Pt complete first blood transfusion 2340, pt tolerated tranfusion very well. Reports not adverse symptoms. Pt up to use bathroom before next transfusion.
[2022-07-12] VITALS (14 sets, daily range): BP systolic 102–123; BP diastolic 63–77; PULSE 56–80; RESP 13–18; TEMP 36.4–36.9; O2SAT 99–100
--- NOTE | 2022-07-12 03:50 | PC.NURSE ---
Took over care from INDIRA Maurice at 3:45am. Pt completed blood transfusion without any issue. pt is resting in bed with her at the bedside. Will continue to monitor.
[2022-07-12 06:17] LABS: Basophils Absolute Auto 0.1 X10*3/uL (0.0-0.2); Basophils Percent Auto 0.7 % (0-2); Imm Gran Abs Auto 0.02 X10*3/uL (0.00-0.03); Imm Gran Pct Auto 0.3 % (0.0-0.4); MANUAL DIFF FLAG SCAN; Monocytes Absolute Auto 0.5 X10*3/uL (0.1-1.2); Monocytes Percent Auto 6.2 % (2-11); SCAN SMEAR FLAG 1
[2022-07-12 06:19] LABS: Eosinophils Absolute Auto 0.4 X10*3/uL (0.0-0.4); Hematocrit 35.9 % (37.0-47.0); Hemoglobin 10.4 g/dl (12.0-16.0); Lymphocytes Absolute Auto 1.6 X10*3/uL (1.2-4.9); Lymphocytes Percent Auto 21.9 % (20-40); Mean Corpuscular Hemoglobin 19.3 pg (27.0-33.0); Mean Corpuscular Volume 66.6 fL (80.0-98.0); Neutrophils Absolute Auto 4.7 x10*3/uL (2.0-8.3); Neutrophils Percent Auto 64.9 % (45-73); Platelet Count 131 X10*3/uL (160-400); Red Blood Count 5.39 X10*6/uL (4.20-5.50); Red Cell Distribution Width 32.5 % (11.0-16.0); White Blood Count 7.2 X10*3/uL (4.8-10.8)
[2022-07-12 06:22] LABS: PLT ABN DIST 1
[2022-07-12 06:29] LABS: Anion Gap 12 (12-20); Blood Urea Nitrogen 8 mg/dL (9-16); Calcium 9.1 mg/dL (8.4-10.2); Carbon Dioxide 23 mmol/L (22-29); Chloride 109 mmol/L (96-108); Creatinine Clr Calc Pharmacy 102.9; Estimated Glomerular Filt Rate > 60; Glucose Random 86 mg/dL (60-115); Potassium 4.3 mmol/L (3.3-5.1); Sodium 140 mmol/L (135-145)
[2022-07-12 06:42] LABS: SLIDE REVIEW VERIFIED
[2022-07-12] MEDS: 0.9 % Sodium Chloride Flush 3 ML SYRINGE IVFLUSH (07:32)
--- NOTE | 2022-07-12 08:14 | PC.NURSE ---
PT IS A/O X 4 NO SOB/VON NOTED SPEAKS IN FULL SENTENCES . LUNGS CTA. HEART SOUNDS REGULAR. ABD SOUNDS SOFT N/T, +BS IN 4 QUADS. NO EDEMA NOTED. PT IS RESTING. REFUSED BREAKFAST AT THIS TIME. PT AWARE OF PLAN OF CARE.
--- NOTE | 2022-07-12 08:18 | PM.DS ---
DS: Providers Provider Date of Service: 07/12/22 Date of admission: 07/11/22 22:03 Primary care physician: Kat Monroy MD DS: Diagnosis Discharge Diagnosis (1) ABLA (acute blood loss anemia): Status: Acute (2) Menorrhagia: Status: Acute DS: Summary Hospital Course Hospital Course: Chief Complaint: Dizziness This is a 37-year-old female with history of renal cell carcinoma status post left kidney removal, currently not on any prescription medications who was sent to the emergency department for evaluation of abnormal labs at her PCPs office.? Patient states she has been having dizziness, lightheadedness for a while now.? She had an appointment with her PCP after a long time yesterday when blood work was done.? She was called to inform that her hemoglobin was low and that she should present to the ER.? Patient states for the last 5-6 months she has been having heavy menstrual cycle lasting about 7 days.? Her dizziness is worse when she tries to stand but resolves after.? Also has associated fatigue.? Patient has not seen transportation director for her menorrhagia.? Patient denies fever, chills, chest discomfort, palpitations, shortness of breath, abdominal discomfort, changes in urinary or bowel habits.? No hematemesis, hematuria, melena or hematochezia. Hospital course: She presented with menorrhagia associated with dizziness and palpitation (tachycardia) and was found to have a hemoglobin of 6.6 and hematocrit of 25. MCV is 66. She thus has acute blood loss anemia with iron deficiency and is symptomatic. She has transfused two units of RBCs and is feeling better. Hematocrit is now 35, and hemoglobin is 10. She no longer has dizziness, no palpitation or tachycardia, and no sob. She will be prescribed an iron supplement and follow up with SEXUAL ABUSE COUNSELLOR in the office (Dr. Bowers ) Final diagnosis: Menorrhagia Acute blood loss anemia Palpiations Dizziness Time Spent with Patient Time attestation: Total time spent providing and/or coordinating discharge services: Discharge coordination time: Greater than 30 minutes Quality: Safe Use of Opioids Does Pt have an Active Cancer Diagnosis on the Problem List?: No Quality: Stroke Does the patient have a stroke diagnosis?: No Physical Exam Vital Signs: Vital Signs: Last Vital Signs Temp 97.7 F 07/12/22 07:27 Pulse 74 07/12/22 07:39 Resp 14 07/12/22 07:27 BP 113/71 07/12/22 07:39 Pulse Ox 100 07/12/22 07:27 O2 Del Method 07/12/22 07:27 BMI result Body Mass Index 22.5 DS: Data Data Completed and Pending Labs on day of discharge: Laboratory Results - last 24 hr 07/11/22 07/11/22 07/11/22 13:45 13:45 17:22 WBC 6.0 RBC 4.49 Hgb 6.8 L* Hct 26.0 L MCV 57.9 L MCH 15.1 L MCHC 26.2 L RDW 22.1 H Plt Count 163 MPV Not Reportable Immature Gran % (Auto) 0.3 Neut % (Auto) 76.3 H Lymph % (Auto) 14.6 L [place] % (Auto) 6.0 Eos % (Auto) 2.5 Baso % (Auto) 0.3 Lymph # (Auto) 0.9 L [place] # (Auto) 0.4 Eos # (Auto) 0.2 Baso # (Auto) 0.0 Abs Immat Gran (auto) 0.02 Absolute Neuts (auto) 4.6 Absolute Nucleated RBC 0.000 Nucleated RBC % (auto) 0.0 Smear Tech's Comments VERIFIED Sodium 139 Potassium 4.6 Chloride 105 Carbon Dioxide 24 Anion Gap 15 BUN 10 Creatinine 0.78 Estim Creat Clear Calc 97.7 Estimated GFR > 60 Random Glucose 99 Calcium 9.4 Iron TIBC % Saturation Unsat Iron Binding Total Bilirubin 0.4 AST 25 ALT 12 Alkaline Phosphatase 56 Total Protein 7.2 Albumin 4.3 Beta HCG, Quant < 2 COVID-19 (PAT) COVID-19 Clin Com Blood Type B Positive Antibody Screen NEGATIVE Crossmatch See Detail 07/11/22 07/11/22 07/12/22 21:45 22:59 05:50 WBC 7.2 RBC 5.39 D Hgb 10.4 L D Hct 35.9 L D MCV 66.6 L D MCH 19.3 L MCHC 29.0 L RDW 32.5 H Plt Count 131 L MPV Not Reportable Immature Gran % (Auto) 0.3 Neut % (Auto) 64.9 Lymph % (Auto) 21.9 [place] % (Auto) 6.2 Eos % (Auto) 6.0 H Baso % (Auto) 0.7 Lymph # (Auto) 1.6 [place] # (Auto) 0.5 Eos # (Auto) 0.4 Baso # (Auto) 0.1 Abs Immat Gran (auto) 0.02 Absolute Neuts (auto) 4.7 Absolute Nucleated RBC 0.000 Nucleated RBC % (auto) 0.0 Smear Tech's Comments VERIFIED Sodium Potassium Chloride Carbon Dioxide Anion Gap BUN Creatinine Estim Creat Clear Calc Estimated GFR Random Glucose Calcium Iron 13 L TIBC 411 % Saturation 3 L Unsat Iron Binding 398 Total Bilirubin AST ALT Alkaline Phosphatase Total Protein Albumin Beta HCG, Quant COVID-19 (PAT) Negative COVID-19 Clin Com See Note Blood Type Antibody Screen Crossmatch 07/12/22 05:50 WBC RBC Hgb Hct MCV MCH MCHC RDW Plt Count MPV Immature Gran % (Auto) Neut % (Auto) Lymph % (Auto) [place] % (Auto) Eos % (Auto) Baso % (Auto) Lymph # (Auto) [place] # (Auto) Eos # (Auto) Baso # (Auto) Abs Immat Gran (auto) Absolute Neuts (auto) Absolute Nucleated RBC Nucleated RBC % (auto) Smear Tech's Comments Sodium 140 Potassium 4.3 Chloride 109 H Carbon Dioxide 23 Anion Gap 12 BUN 8 L Creatinine 0.74 Estim Creat Clear Calc 102.9 Estimated GFR > 60 Random Glucose 86 Calcium 9.1 Iron TIBC % Saturation Unsat Iron Binding Total Bilirubin AST ALT Alkaline Phosphatase Total Protein Albumin Beta HCG, Quant COVID-19 (PAT) COVID-19 Clin Com Blood Type Antibody Screen Crossmatch Discharge Plan Discharge Anticipated Discharge Date/Time: 07/12/22 08:14 Patient Disposition: Home Health Service Discharge Diagnosis: ABLA (Acute blood loss anemia), Menorrhagia Referrals: Kat Bella MD [Primary Care Provider] - 1 Week Charles Sotelo MD [Physician] - 1 Week Discharge Medications: New ferrous sulfate 325 mg (65 mg iron) tablet,delayed release (DR/EC) 325 mg PO BID Qty: 60 0RF Continued acetaminophen 325 mg Tablet 650 mg PO Q6H PRN (Reason: Pain) omeprazole 20 mg capsule,delayed release(DR/EC) 20 mg PO DAILY PRN (Reason: Heartburn) Discharge Orders: Discharge Order (Routine); Ordered 07/12/22 Ordered By: Selvin Gil Diet: Advance to usual diet Activity on Discharge: As tolerated Stand Alone Forms: Patient Portal Discharge page Care Plan Goals: Full work up of anemia and heavy menses Health Concerns: Menorrhagia, anemia Plan of Treatment: Take Iron pills Follow up with Dr. Sotelo (Call office on Thursday for appointment)--[phone] If you continue to experience heavy bleeding and dizziness, shortness of breath or palpiations come back to the ED or call [phone] Also follow up with your doctor in a week, call for appointment Assessment: as above
--- NOTE | 2022-07-12 13:46 | MHC.CM.PN ---
Patient discharged home before being seen by case management.
== END 2022-07-12 10:00 | disposition home or self-care (01) ==
LOC: HO.ED 21:03 → HO.EDOVER 22:14
PROVIDERS: Physician Assistant Medical; Admitting Provider Student in an Organized Health Care Education/Training Program; Emergency Provider Student in an Organized Health Care Education/Training Program; PCP Family Medicine; Visit Provider Internal Medicine
DX: N92.0 Excessive and frequent menstruation with regular cycle (principal); D62 Acute posthemorrhagic anemia; R42 Dizziness and giddiness; R00.0 Tachycardia, unspecified; Z20.822 Contact with and (suspected) exposure to COVID-19; Z79.899 Other long term (current) drug therapy
CPT/HCPCS: 36430; 36415; 76830; 76856; 80048; 80053; 83540; 84702; 85025; 86850; 86900; 86901; 86923; 87635; 96374; 99218; 99284; P9016

== ENCOUNTER 2022-08-18 11:04 | Outpatient (REF) | payer OTHER, SELFPAY ==
[2022-08-20 19:23] LABS: TS Negative Control Passed; TS Panel A 0; TS Panel B 0; TS Positive Control Passed; TSpotTB Negative (Negative)
== END 2022-08-18 11:05 | disposition home or self-care (01) ==
LOC: HO.10HDL 11:04
PROVIDERS: Visit Provider Family Medicine
DX: Z11.1 Encounter for screening for respiratory tuberculosis (principal)
CPT/HCPCS: 36415; 86481

== ENCOUNTER 2022-08-28 17:32 | Outpatient (REF) | payer OTHER, SELFPAY ==
--- NOTE | ~2022-08-28 | MR_ITS ---
EXAMINATION: MRI ABDOMEN AND PELVIS WITH AND WITHOUT CONTRAST CLINICAL INFORMATION: Malignant neoplasm of left kidney. Leiomyoma of uterus. Abnormal findings in the left adnexa noted on a recent ultrasound. COMPARISON: Pelvic ultrasound 07/11/2022. Renal ultrasound 07/10/2022. TECHNIQUE: Multiple routine MRI sequences through the abdomen and pelvis were obtained before and after the uneventful administration of 6 mL Gadavist gadolinium-based IV contrast. FINDINGS: LUNG BASES: Lung bases are clear. LIVER: There is some degree of signal loss in the opposed-phase dual-echo images suggesting the presence of hepatic steatosis. Otherwise, the liver is normal in size and shape. There are no discrete focal liver lesions with the caveat that the superior segments of the liver were not included on the axial images, limiting evaluation. GALLBLADDER AND BILIARY TREE: Normal gallbladder. No biliary duct dilatation. SPLEEN: The spleen measures 14.4 cm craniocaudally. No focal lesion. PANCREAS: Normal. ADRENAL GLANDS: No adrenal mass. KIDNEYS AND URETERS: Left nephrectomy. No new soft tissue nodularities in the postoperative bed to suspect local recurrence. Mild right hydroureteronephrosis. GASTROINTESTINAL: No evidence of bowel obstruction. PELVIS: The uterus is anteverted measuring 7 cm cervix to fundus by 6.6 cm anterior to posterior (with the inclusion of uterine masses) and 6.6 cm transversely. There is a 3 cm homogeneously T2 dark partially pedunculated mass in the lower anterior uterine surface with enhancement lower than the myometrium, favoring to represent a fibroid. There is a smaller 1 cm homogeneously T2 dark intramural lesion in the right uterine body (7:14), favoring to represent an additional fibroid. There is thickening and indistinctness of the junctional zone in the posterior surface of the uterus (5:11), suggesting adenomyosis. There is a 0.8 cm T2 bright cervical Nabothian cyst. No suspicious cervical or vagina masses. There is a 8 x 6.2 cm homogeneously T1 bright right ovarian mass (8:16) and a septated versus cluster of homogeneously T1 bright left ovarian masses measuring conjunction 5 x 3.7 cm (8:16). These demonstrate shading on T2 images and no definitely enhancing nodules, although evaluation is limited in the absence of subtraction images given the intrinsic T1 bright activity. In the anterior compartment, there is questionable soft tissue thickening along the superior aspect of the urinary bladder on T2 images (5:14), which is overall suboptimally assessed due to underdistention. In the middle and posterior compartments, there is medial retraction of the ovaries with spiculated low T2 thickening in the rectouterine pouch suggestive of deep pelvic endometriosis. There is a questionable approximately 1.5 cm nodule in the anterior upper rectal wall (5:13), that could represent rectal endometriosis, given additional findings. No free fluid. LYMPHOVASCULAR STRUCTURES: Normal caliber aorta. IVC patent. No pathologically enlarged abdominal, retroperitoneal or pelvic lymphadenopathy by short axis size criteria. OSSEOUS STRUCTURES: No acute or suspicious osseous abnormalities. MR/MR abdomen wo/w con IMPRESSION: 1. No evidence of local recurrent disease in the left nephrectomy bed. 2. No evidence of metastatic disease from renal malignancy in the abdomen or pelvis. 3. 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 4. Mild right hydroureteronephrosis that could be potentially explained by mass effect from the right ovarian endometrioma and deep pelvic endometriosis. Endometrial implants in the ureter are suboptimally assessed due to motion and lack of definition of the distal right ureter. 5. Uterine fibroids and uterine adenomyosis.
[2022-08-28 17:44] LABS: Hematocrit 39.8 % (37.0-47.0); Hemoglobin 13.2 g/dl (12.0-16.0); Mean Corpuscular HGB Conc 33.2 g/dl (31.0-35.0)
[2022-08-28 17:46] LABS: Mean Corpuscular Hemoglobin 25.4 pg (27.0-33.0); Mean Corpuscular Volume 76.5 fL (80.0-98.0); Platelet Count 155 X10*3/uL (160-400)
[2022-08-28 17:58] LABS: Blood Urea Nitrogen 12 mg/dL (9-16); Estimated Glomerular Filt Rate > 60
[2022-08-28 18:21] LABS: PLT ABN DIST 1; WBC ABN SCTR FOR CBC 1
[2022-08-28 18:33] LABS: Basophils Percent Manual 1 % (0-2); Eosinophils Percent Manual 5 % (0-4); Lymphocytes Percent Manual 36 % (20-40); Monocytes Percent Manual 3 % (2-11); Neutrophils Percent Manual 55 % (45-73)
[2022-08-28 18:34] LABS: Band Neutrophils Percent 0 % (3-5); Hypochromasia 1+ (5-14) /OIF; Microcytosis 1+ (5-14) /OIF; Platelet Estimate SLIGHTLY DECREASED (NORMAL); Platelet Morphology Comment NORMAL; RBC Morphology NORMAL
[2022-08-28 18:35] LABS: Ovalocytes 1+ (5-14) /OIF
[2022-08-28 18:36] LABS: Basophils Abs Manual 0.1 X10*3/uL (0.0-0.2); Eosinophils Absolute Manual 0.4 X10*3/uL (0.0-0.4); Lymphocytes Absolute Manual 2.7 X10*3/uL (1.2-4.9); Monocytes Absolute Manual 0.2 X10*3/uL (0.1-1.2); Neutrophils Absolute Manual 4.1 X10*3/uL (2.0-8.3); White Blood Count 7.4 X10*3/uL (4.8-10.8)
== END 2022-08-28 17:33 | disposition home or self-care (01) ==
LOC: HO.MRI 17:32
PROVIDERS: PCP Family Medicine; Referring Provider Family Medicine; Visit Provider Physician Assistant
DX: C64.2 Malignant neoplasm of left kidney, except renal pelvis (principal); N13.39 Other hydronephrosis; D25.9 Leiomyoma of uterus, unspecified; N92.6 Irregular menstruation, unspecified; N92.0 Excessive and frequent menstruation with regular cycle
CPT/HCPCS: 36415; 72197; 74183; 82565; 84520; 85007; 85027; A9585

== ENCOUNTER 2022-11-13 11:50 | Outpatient (REF) | payer OTHER, SELFPAY ==
--- NOTE | ~2022-11-13 | US_ITS ---
EXAMINATION: US RETROPERITONEAL COMPLETE (RENAL) CLINICAL INFORMATION: Hydronephrosis. COMPARISON: MRI abdomen and pelvis with and without contrast 08/28/2022. Ultrasound retroperitoneal limited (renal only) 07/10/2022 and 05/02/2021. TECHNIQUE: Real-time imaging of the kidneys and bladder. FINDINGS: RIGHT KIDNEY: 11.9 x 4.5 x 6.4 cm (SAG x AP x TRV). The kidney is normal in size, contour, and echogenicity. Renal cortical thickness is normal. No calculi or focal parenchymal lesions. Although at the time of the prior MR, mild right-sided hydronephrosis was felt to be present, at this time, there is no right-sided hydronephrosis. LEFT KIDNEY: Surgically absent. BLADDER: Well distended and normal. Right ureteral jet is demonstrated. Prevoid bladder volume is 249 mL. Postvoid bladder volume is 6.4 mL. US/US retroperitoneal comp IMPRESSION: Status post left nephrectomy. Normal-appearing right kidney without hydronephrosis.
== END 2022-11-13 11:51 | disposition home or self-care (01) ==
LOC: HO.US 11:50
PROVIDERS: PCP Family Medicine; Visit Provider Urology
DX: N13.39 Other hydronephrosis (principal); C64.2 Malignant neoplasm of left kidney, except renal pelvis
CPT/HCPCS: 76770

== ENCOUNTER → 2022-12-11 12:49 | Outpatient (BNVA) | payer OTHER, SELFPAY | PROVIDERS: PCP Family Medicine; Visit Provider Nurse Practitioner Family | DX: N13.30 Unspecified hydronephrosis (principal); N92.0 Excessive and frequent menstruation with regular cycle; Z90.710 Acquired absence of both cervix and uterus; Z90.5 Acquired absence of kidney; Z85.528 Personal history of other malignant neoplasm of kidney | CPT/HCPCS: 99202 ==

== ENCOUNTER 2023-11-06 11:00 | Outpatient (REF) | payer OTHER, SELFPAY ==
[2023-11-06 11:19] LABS: MANUAL DIFF FLAG NO
[2023-11-06 11:51] LABS: Basophils Percent Auto 0.5 % (0-2); Eosinophils Absolute Auto 0.3 X10*3/uL (0.0-0.4); Eosinophils Percent Auto 5.3 % (0-4); Hematocrit 44.7 % (37.0-47.0); Hemoglobin 15.2 g/dl (12.0-16.0); Imm Gran Abs Auto 0.02 X10*3/uL (0.00-0.03); Imm Gran Pct Auto 0.3 % (0.0-0.4); Lymphocytes Absolute Auto 1.6 X10*3/uL (1.2-4.9); Lymphocytes Percent Auto 26.4 % (20-40); Mean Corpuscular Hemoglobin 27.1 pg (27.0-33.0); Mean Corpuscular Volume 79.7 fL (80.0-98.0); Monocytes Absolute Auto 0.3 X10*3/uL (0.1-1.2); Monocytes Percent Auto 5.4 % (2-11); Neutrophils Absolute Auto 3.8 x10*3/uL (2.0-8.3); Neutrophils Percent Auto 62.1 % (45-73); Platelet Count 126 X10*3/uL (160-400); Red Blood Count 5.61 X10*6/uL (4.20-5.50); Red Cell Distribution Width 13.5 % (11.0-16.0); White Blood Count 6.1 X10*3/uL (4.8-10.8)
[2023-11-06 13:00] LABS: Ferritin 36 ng/mL (10-250); Iron 110 mcg/dL (30-160); Percent Iron Saturation 35 % (15-50); Total Iron Binding Capacity 310 mcg/dL (228-428); Unsaturated Iron Binding 200 ug/dL
== END 2023-11-06 11:01 | disposition home or self-care (01) ==
LOC: HO.LAB 11:00
PROVIDERS: PCP Family Medicine; Visit Provider Family Medicine
DX: D50.9 Iron deficiency anemia, unspecified (principal)
CPT/HCPCS: 36415; 82728; 83540; 85025

== ENCOUNTER 2023-11-26 12:27 | Outpatient (REF) | payer OTHER, SELFPAY ==
--- NOTE | ~2023-11-26 | US_ITS ---
EXAMINATION: US RETROPERITONEAL COMPLETE (RENAL) CLINICAL INFORMATION: Personal history of renal cell carcinoma. COMPARISON: Renal ultrasound 11/13/2022 TECHNIQUE: Real-time imaging of the kidneys and bladder. FINDINGS: RIGHT KIDNEY: 11.9 x 4.8 x 6.1 cm (SAG x AP x TRV). The kidney is normal in size, contour, and echogenicity. Renal cortical thickness is normal. No calculi or focal parenchymal lesions. There is mild fullness of the renal pelvis without dominga hydronephrosis. LEFT KIDNEY: Surgically absent BLADDER: Well distended and normal. The right ureteral jet is demonstrated. Prevoid bladder volume is 263 mL. Postvoid bladder volume is 8 mL. US/US retroperitoneal comp IMPRESSION: Status post left nephrectomy. Normal-appearing right kidney without hydronephrosis.
== END 2023-11-26 12:28 | disposition home or self-care (01) ==
LOC: HO.US 12:27
PROVIDERS: PCP Family Medicine; Visit Provider Nurse Practitioner Family
DX: Z85.528 Personal history of other malignant neoplasm of kidney (principal)
CPT/HCPCS: 76770

== ENCOUNTER 2023-12-10 10:30 | Outpatient (REF) | payer OTHER, SELFPAY ==
[2023-12-10 11:39] LABS: Blood Urea Nitrogen 10 mg/dL (9-16); Estimated Glomerular Filt Rate > 60
== END 2023-12-10 10:31 | disposition home or self-care (01) ==
LOC: HO.LAB 10:30
PROVIDERS: Visit Provider Nurse Practitioner Family
DX: Z85.528 Personal history of other malignant neoplasm of kidney (principal)
CPT/HCPCS: 36415; 82565; 84520

== ENCOUNTER 2023-12-10 12:41 | Outpatient (AMB) | payer OTHER, SELFPAY ==
--- NOTE | 2023-12-10 12:41 | A.OFFVIS_ITS ---
Intake Intake Visit Reasons: 1y/labs/US Intake Note: Patient presents today for a telehealth follow up on: Labs/US Meds- None Allergies to Antibiotic- No Known Allergies Blood Thinner- None Vice President Quality Improvement Required: No Allergies No Known Allergies [No Known Allergies*] Allergy (Verified 12/10/23 17:02) Medication List - Last Reconciled 12/10/23 by MELVIN Norris acetaminophen 650 mg PO Q6H PRN omeprazole 20 mg PO DAILY PRN HPI HPI Comments History of Present Illness Details Kathleen is a pleasant 37-year-old female patient of Dr. Ron Monroy who was accompanied by her on at today's visit. She is being followed up on today via video telehealth for her history of renal cell carcinoma. Recent renal ultrasound results reviewed with the patient today. Right kidney with no calculi or lesions noted. There is mild fullness of the renal pelvis without dominga hydronephrosis. Left kidney is surgically absent. The bladder is well distended and normal. The right ureteral jet is demonstrated. Pre void bladder volume is approximately 260 mL. Postvoid bladder volume is approximately 10 mL. BUN and creatinine are as follows: BUN 07/22 8, 08/21 12, 12/22 10 Creatinine 07/22 0.74, 08/21 0.90, 12/22 0.83 She discusses having had a left-sided nephrectomy with Dr. Chelsey Paige in 2014 due to renal call carcinoma. In review of patient's chart it appears MRI 08/21 noted no evidence of local recurrent disease in the left nephrectomy bed. No evidence of metastatic disease from renal malignancy in the abdomen or pelvis. She discusses having undergone a complete hysterectomy last year and has been doing and recovering well. She otherwise denies any bothersome urinary issues or concerns. She reports be happy with current voiding parameters. She denies urinary urgency, urinary frequency, incontinence, nocturia, hematuria, dysuria, foul smelling urine, changes to urinary stream, flank pain, fever, and or chills. She denies any issues or concerns at this time. Discussed yearly surveillance monitoring, healthy eating, exercising, sustaining healthy weight, and staying well hydrated. [facility] Medical History Hx of renal cell carcinoma Menorrhagia Review of Systems Const All systems reviewed & are unremarkable except as noted in HPI and below Physical Exam Const General: cooperative, healthy appearing, comfortable, no acute distress, well developed, alert and awake Orientation/consciousness: patient oriented x3 Resp Effort & Inspection: normal respiratory effort and able to speak in complete sentences Neuro General: patient oriented x3 Psych Appearance: grossly normal Speech and movement: Normal speech and movement present and Clear speech present Affect: normal affect Attitude: cooperative Thought process: Normal thought process present Thought content: Normal thought content present Insight: Fair insight present (Psych) Judgement: Fair judgement present (Psych) Results Reviewed Results Reviewed: Date of Service: 11/26/23 EXAMINATION: US RETROPERITONEAL COMPLETE (RENAL) FINDINGS: RIGHT KIDNEY: 11.9 x 4.8 x 6.1 cm (SAG x AP x TRV). The kidney is normal in size, contour, and echogenicity. Renal cortical thickness is normal. No calculi or focal parenchymal lesions. There is mild fullness of the renal pelvis without dominga hydronephrosis. LEFT KIDNEY: Surgically absent BLADDER: Well distended and normal. The right ureteral jet is demonstrated. Prevoid bladder volume is 263 mL. Postvoid bladder volume is 8 mL. IMPRESSION: Status post left nephrectomy. Normal-appearing right kidney without hydronephrosis. Assessment & Plan Assessment & Plan (1) Hx of renal cell carcinoma: Code(s): Z85.528 - Personal history of other malignant neoplasm of kidney Plan Recent renal imaging results reviewed with the patient today; as noted above. BUN and creatinine results reviewed and trended with the patient today; as noted above. Patient currently denies any bothersome urinary issues or concerns. She is happy with her current voiding parameters. Discussed continuing with surveillance monitoring. Will obtain renal ultrasound in 1 year BUN and creatinine in 1 year Follow-up in 1 year with imaging and labs to be completed prior; or sooner with any issues, concerns, and or questions. Orders: Orders Blood Urea Nitrogen 1 Year Z85.528 - Personal history of other malignant neoplasm of kidney US renal BI 1 Year N20.0 - Calculus of kidney Creatinine 1 Year Z85.528 - Personal history of other malignant neoplasm of kidney Patient Instructions: The patient had an opportunity to ask questions regarding the treatment plan. All questions were answered. Physical exam, labs, and imaging were discussed and reviewed in detail. As well as risks, benefits, and discussion of treatment choices. No major barriers to understanding were identified. The patient expressed understanding and agreement with the above treatment plan. The patient was made aware they should contact our office by phone for worsening of their current condition, the appearance of new symptoms, or with any questions or concerns. Compliance is encouraged with any medications and follow up testing that is ordered. It is a privilege to be allowed the opportunity to participate in? your urological care.? Again, if you have any questions or concerns If you have any questions or concerns please do not hesitate to contact me. The office is [phone]. This note is constructed using voice recognition software. While every effort has been made to ensure accuracy computer numerical control operator errors may have been included. Yours sincerely, DARREN Norris- Telehealth Telehealth Location of provider rendering services: practice address Location of patient: address on file Patient Identification confirmed using: Name, : Yes Telehealth method: video Patient verbally consented to treatment: Yes Patient verbally consented to billing insurance company: Yes Patient informed of any privacy concerns related to visit: Yes Minutes spent on Phone/Video with Pt.: 15 Coding Level of Care Code Tele Est Pt Level 3 (69228) Diagnoses Hx of renal cell carcinoma Z85.528
== END 2023-12-10 13:45 | disposition home or self-care (01) ==
LOC: HO.HUSH 12:41
PROVIDERS: PCP Family Medicine; Visit Provider Nurse Practitioner Family
DX: Z85.528 Personal history of other malignant neoplasm of kidney (principal)
CPT/HCPCS: 99213

== ENCOUNTER 2024-06-02 12:10 | Outpatient (REF) | payer OTHER, SELFPAY ==
--- NOTE | ~2024-06-02 | MM_ITS ---
EXAMINATION: MM SCREENING DIGITAL BREAST TOMOSYNTHESIS, BILATERAL CLINICAL INFORMATION: Screening. Asymptomatic. COMPARISON: Mammography: Baseline. TECHNIQUE: Digital breast mammography with tomosynthesis is performed in both the craniocaudal and mediolateral oblique views along with computer-aided detection (CAD). FINDINGS: There are scattered areas of fibroglandular density (ACR BI-RADS breast composition Category b). There are no significant masses, abnormal calcifications, or other abnormalities. MM/MM tomosynthesis screening BI IMPRESSION: No mammographic evidence of malignancy. ASSESSMENT: BI-RADS BI-RADS 1 - Negative RECOMMENDATION: Routine annual mammography screening. 1 year F/U This examination should not preclude the clinical evaluation of a suspicious palpable abnormality. This patient's information was entered into a reminder system with a target due date for their next mammogram. Electronically signed by: Maura Li DO 06/15/2024 11:58 AM EDT
== END 2024-06-02 12:11 | disposition home or self-care (01) ==
LOC: HO.MAMMO 12:10
PROVIDERS: PCP Family Medicine; Visit Provider Family Medicine
DX: Z12.31 Encounter for screening mammogram for malignant neoplasm of breast (principal)
CPT/HCPCS: 77063; 77067

== ENCOUNTER → 2024-06-02 13:00 | Outpatient (BNV) | payer OTHER, SELFPAY | PROVIDERS: PCP Family Medicine; Visit Provider Internal Medicine | DX: Z12.31 Encounter for screening mammogram for malignant neoplasm of breast (principal) | CPT/HCPCS: 77063; 77067 ==